=== PATIENT | male | born 1950 | race Caucasian/White ===

== ENCOUNTER 2017-06-04 16:22 | Emergency (ER) | payer OTHER, BC ==
[2017-06-04 16:35] VITALS: TEMP 99
--- NOTE | 2017-06-04 16:50 | CPEKG ---
Heart Rate: 54 RR Interval: 1111 P-R Interval: 184 QRSD Interval: 90 QT Interval: 448 QTC Interval: 425 P [place]: 52 QRS [place]: 23 T Wave [place]: 27 EKG Severity - ABNORMAL ECG - EKG Impression: SINUS RHYTHM EKG Impression: LEFT VENTRICULAR HYPERTROPHY Electronically Signed By: Mitchel Cosby 06-Jun-2017 12:31:40
[2017-06-04] MEDS ORDERED: ACETAMINOPHEN 325 MG TAB PO ONE (17:05)
[2017-06-04 17:08] LABS: PLATELET COUNT 150 10^3/uL (150-400)
--- NOTE | 2017-06-04 17:20 | EDPHY ---
H & P Stated Complaint: C/O HTN/CHEST TIGHTNESS/ZACARIAS ON AND OFF X 2WEEKS Time Seen by Provider: 06/04/17 16:32 HPI/ROS: Over the past 2 weeks this patient has noticed hypertension on a home blood pressure machine is been using to monitor his blood pressure. His primary care physician noted labile hypertension in the past. Over the same period of time the patient has noted intermittent headaches described as a "hot feeling" diffuse in location. He has this headache currently and describes the intensity as 6/10. This feels similar to previous headaches. He explains that for the past 2 weeks he typically gets this headache in the afternoon & evening and that it resolves when he wakes up in the morning. The headache does not prevent sleep. He has not tried any nabw-euw-vjiyjdr analgesics for his headache. He also describes a slight hot feeling in his chest. He will not call this pain. He just describes a feeling of "heat in his chest". This also is intermittent over the past 2 weeks, lasting an hour at a time. Finally, he reports occasional nausea including nausea this morning. He reports some chronic vision abnormalities that he attributes to his glaucoma and feels the lately he has slightly darker vision than usual, but has also had this in the past. His sister drove him by private vehicle here for further evaluation of his symptoms today. ROS: Constitutional: No significant fatigue. No fevers. HEENT: No complaints new line pulmonary: No dyspnea or cough. Cardiovascular: No heart palpitations. No lower extremity swelling. No worsening of the burning in his chest with exertion. GI: Normal bowel movements. No abdominal pain. Some nausea but no vomiting. : No flank pain. No dark urine or dysuria. No testicular symptoms. Integumentary: No diaphoresis. No pallor. No rash. Endocrine: No complaints Neuro: No confusion. No focal numbness tingling weakness. Complete review of symptoms otherwise negative Source: Patient Exam Limitations: No limitations - Personal History Current Tetanus Diphtheria and Acellular Pertussis (TDAP): Yes - Medical/Surgical History Other PMH: HERNIA/GLACOMA/ OA/HTN/. Osteopenia - Family History Significant Family History: Hypertension (His brother has a history of hypertension) - Social History Smoking Status: Never smoked Alcohol Use: Occasionally Drug Use: None - Physical Exam Exam: Vital signs notable for hypertension at 192/109. Other vitals normal. General Appearance: Alert, no distress. Eyes: Pupils equal and round no pallor or injection. ENT, Mouth: Mucous membranes moist. No cranial tenderness to palpation. Neck is supple Respiratory: There are no retractions, lungs are clear to auscultation. Cardiovascular: Regular rate and rhythm. No murmur gallop rub. Gastrointestinal: Abdomen is soft and nontender, no masses, bowel sounds normal. Neurological: GCS 15. No focal deficits. Cranial nerves 2-12 intact. Skin: Warm and dry, no rashes. Extremities are symmetrical, full range of motion. Psychiatric: He has a flat affect with the slow rate of speech, but otherwise mood is normal. DIFFERENTIAL DIAGNOSIS: After history and physical exam differential diagnosis was considered for essential hypertension with tension headache, doubt hypertensive encephalitis. Thyroid disease, myocardial ischemic disease, GERD, renal disease Constitutional: Initial Vital Signs Temperature (C) 37.2 C 06/04/17 16:30 Heart Rate 58 L 06/04/17 16:30 Respiratory Rate 18 06/04/17 16:30 Blood Pressure 192/109 H 06/04/17 16:30 O2 Sat (%) 99 06/04/17 16:30 O2 Delivery Mode Room Air Allergies/Adverse Reactions: No Known Allergies Allergy (Unverified 06/04/17 16:28) Home Medications: Medication Instructions Recorded Brimonidine 0.15% 06/04/17 Chlorthalidone 25 mg (*) 06/04/17 Dorzolamide 2% 06/04/17 Doxepin HCl 06/04/17 Latanoprost 0.005% 06/04/17 Lisinopril 10 mg PO DAILY #30 tablet 06/04/17 Myrbetriq 06/04/17 Ocuvite Lutein & Zeaxanthin Cp 06/04/17 Reclast 06/04/17 Medical Decision Making - Diagnostics EKG Interpretation: 12 lead EKG performed shortly after arrival indication chest pain Sinus rhythm at 54 Intervals: Normal throughout [place]: P of 52, QRS of 23, T of 27 ST segments: Normal throughout with exception of slight J-point elevation in lead V3. QRS voltage criteria for LVH is present. Overall assessment sinus rhythm with LVH ED Course/Re-evaluation: Review of labs reveals hyponatremia with a sodium of 124 CBC is normal Troponin is normal Clonidine p.o. With resolution of the patient's hypertension Tylenol p.o. With mild improvement in his headache. He remained stable while here. His feeling of"chest burning also resolved without further intervention. 1 L normal saline for hyponatremia Discussion: Patient with a history of osteopenia was being treated with the thiazide diuretic to try to slow loss of calcium. Has also had labile hypertension and this may have also been administered in part to treat his hypertension of the patient reports that he has only had labile hypertension present at times on previous visits to his physician. I think that his euvolemic hyponatremia is likely attributable to his thiazide diuretic. Recommend that he stop the thiazide diuretic and start lisinopril. His EKG is normal exception of LVH suggesting that he has longstanding essential hypertension. He also has a 1st order family member with chronic hypertension. I do not think his atypical chest pain is cardiac ischemic in etiology. Counseled regarding the importance of blood pressure control. After workup tonight, do not find evidence of acute end-organ injury from his current hypertension. He may have mild GERD. His headache may be attributable to his hyponatremia I counseled regarding this. No clinical evidence that suggests [employer] bleed, [employer] infection or other"red flag findings." I counseled patient regarding his findings, the treatment plan and answered all of he in his sister's questions prior to discharge home. He was interested in seeing an internal medicine physician in follow-up so provided number for [facility]. The patient understands need to return emergency department should he have any significant worsening of symptoms despite treatment plan. - Data Points Laboratory Results: Laboratory Results 06/04/17 16:55 06/04/17 16:55 06/04/17 06/04/17 06/04/17 17:28 17:20 16:55 WBC RBC Hgb POC Hgb 15.3 gm/dL gm/dL (13.7-17.5) Hct POC Hct 45 % % (40-51) MCV MCH MCHC RDW Plt Count MPV Neut % (Auto) Lymph % (Auto) [place] % (Auto) Eos % (Auto) Baso % (Auto) Nucleat RBC Rel Count Absolute Neuts (auto) Absolute Lymphs (auto) Absolute Monos (auto) Absolute Eos (auto) Absolute Basos (auto) Absolute Nucleated RBC Immature Gran % Immature Gran # POC Sodium 128 mEq/L L mEq/L (135-145) Sodium POC Potassium TNP Potassium POC Chloride 88 mEq/L L mEq/L (97-110) Chloride Carbon Dioxide Anion Gap POC BUN 16 mg/dL mg/dL (7-23) BUN Creatinine POC Creatinine 0.8 mg/dL mg/dL (0.7-1.3) Estimated GFR Glucose POC Glucose 96 mg/dL mg/dL (70-100) Calcium Troponin I TSH 2.160 uIU/mL uIU/mL (0.465-4.680) Urine Color YELLOW Urine Appearance CLEAR Urine pH 7.5 (5.0-7.5) Ur Specific [place] <= 1.005 (1.002-1.030) Urine Protein NEGATIVE (NEGATIVE) Urine Ketones NEGATIVE (NEGATIVE) Urine Blood TRACE H (NEGATIVE) Urine Nitrate NEGATIVE (NEGATIVE) Urine Bilirubin NEGATIVE (NEGATIVE) Urine Urobilinogen 0.2 EU EU (0.2-1.0) Ur Leukocyte Esterase NEGATIVE (NEGATIVE) Urine RBC 0-1 /hpf /hpf (0-3) Urine WBC NONE SEEN /hpf /hpf (0-3) Ur Epithelial Cells TRACE /lpf /lpf (NONE-1+) Urine Glucose NEGATIVE (NEGATIVE) 06/04/17 06/04/17 16:55 16:55 WBC 4.97 10^3/uL 10^3/uL (3.80-9.50) RBC 4.76 10^6/uL 10^6/uL (4.40-6.38) Hgb 14.9 g/dL g/dL (13.7-17.5) POC Hgb Hct 41.7 % % (40.0-51.0) POC Hct MCV 87.6 fL fL (81.5-99.8) MCH 31.3 pg pg (27.9-34.1) MCHC 35.7 g/dL g/dL (32.4-36.7) RDW 13.7 % % (11.5-15.2) Plt Count 150 10^3/uL 10^3/uL (150-400) MPV 10.1 fL fL (8.7-11.7) Neut % (Auto) 61.4 % % (39.3-74.2) Lymph % (Auto) 22.7 % % (15.0-45.0) [place] % (Auto) 12.1 % % (4.5-13.0) Eos % (Auto) 2.4 % % (0.6-7.6) Baso % (Auto) 1.2 % % (0.3-1.7) Nucleat RBC Rel Count 0.0 % % (0.0-0.2) Absolute Neuts (auto) 3.05 10^3/uL 10^3/uL (1.70-6.50) Absolute Lymphs (auto) 1.13 10^3/uL 10^3/uL (1.00-3.00) Absolute Monos (auto) 0.60 10^3/uL 10^3/uL (0.30-0.80) Absolute Eos (auto) 0.12 10^3/uL 10^3/uL (0.03-0.40) Absolute Basos (auto) 0.06 10^3/uL 10^3/uL (0.02-0.10) Absolute Nucleated RBC 0.00 10^3/uL 10^3/uL (0-0.01) Immature Gran % 0.2 % % (0.0-1.1) Immature Gran # 0.01 10^3/uL 10^3/uL (0.00-0.10) POC Sodium Sodium 124 mEq/L L mEq/L (135-145) POC Potassium Potassium 3.6 mEq/L mEq/L (3.5-5.2) POC Chloride Chloride 85 mEq/L L mEq/L (97-110) Carbon Dioxide 29 mEq/l mEq/l (22-31) Anion Gap 10 mEq/L mEq/L (8-16) POC BUN BUN 15 mg/dL mg/dL (7-23) Creatinine 0.7 mg/dL mg/dL (0.7-1.3) POC Creatinine Estimated GFR > 60 Glucose 80 mg/dL mg/dL (70-100) POC Glucose Calcium 9.2 mg/dL mg/dL (8.5-10.4) Troponin I < 0.012 ng/mL ng/mL (0.000-0.034) TSH Urine Color Urine Appearance Urine pH Ur Specific [place] Urine Protein Urine Ketones Urine Blood Urine Nitrate Urine Bilirubin Urine Urobilinogen Ur Leukocyte Esterase Urine RBC Urine WBC Ur Epithelial Cells Urine Glucose Medications Given: Discontinued Medications Acetaminophen (Tylenol) 975 mg PO EDNOW ONE Stop: 06/04/17 17:06 Last Admin: 06/04/17 17:19 Dose: 975 mg Clonidine (Catapres) 0.2 mg PO EDNOW ONE Stop: 06/04/17 17:05 Last Admin: 06/04/17 17:19 Dose: 0.2 mg Sodium Chloride (Ns) 1,000 mls @ 0 mls/hr IV ONCE ONE; Wide Open PRN Reason: Protocol Stop: 06/04/17 18:51 Last Admin: 06/04/17 19:06 Dose: 1,000 mls Point of Care Test Results: 06/04/17 17:28 POC Sodium 128 L POC Potassium TNP POC Chloride 88 L POC BUN 16 POC Creatinine 0.8 POC Glucose 96 Departure - Departure Disposition: Home, Routine, Self-Care Clinical Impression: Hypertensive urgency, Tension headache, Chest pain, atypical, Hyponatremia Condition: Good Instructions: Chest Pain (ED), Low-Sodium Diet (ED), Hypertension (ED) Additional Instructions: Diagnoses: 1. Hypertension 2. Tension headache 3. Atypical chest pain 4. Hyponatremia You're sodium is low tonight and may contribute to her headache. A low sodium is likely attributable to the chlorthalidone medication. Plan: Stop your chlortalidone medication. Stop supplemental potassium Increase sodium intake this week. Start lisinopril Tylenol for headaches if needed Call your primary care physician to arrange for a follow-up appointment for recheck of your blood pressure sometime within the week. He should also have ear sodium recheck to that time. It is likely that she to need a higher dose of lisinopril or addition of a 2nd medication ultimately to control her blood pressure. Return emergency department if you developed severe headache, confusion or other concerns. Referrals: Andre Arriola DO [Primary Care Provider] - As per Instructions Miryam Cortes MD [Medical Doctor] - As per Instructions Prescriptions: Lisinopril 10 mg PO DAILY #30 tablet
[2017-06-04] MEDS ORDERED: NS 1,000 ML IV ONE (18:50)
[2017-06-04 18:55] VITALS: O2SAT 96
[2017-06-04 20:37] VITALS: BP 123/63; PULSE 56; RESP 14
== END 2017-06-04 20:07 | disposition home or self-care (01) ==
LOC: CED 16:22
DX: G44.209 Tension-type headache, unspecified, not intractable (principal); R07.89 Other chest pain; I16.0 Hypertensive urgency; I10 Essential (primary) hypertension; E87.1 Hypo-osmolality and hyponatremia; E86.9 Volume depletion, unspecified
CPT/HCPCS: 80048-PO; 81003-PO; 81015-PO; 82947-QW; 84443-PO; 84484-PO; 85025-PO

== ENCOUNTER → 2018-03-25 | Outpatient (CLI) | payer OTHER, BC | LOC: FIMAGING 10:17 | PROVIDERS: ATTEND Internal Medicine Endocrinology, Diabetes & Metabolism | DX: Z13.820 Encounter for screening for osteoporosis (principal); M81.0 Age-related osteoporosis without current pathological fracture ==

== ENCOUNTER → 2018-05-14 | Outpatient (CLI) | payer OTHER, BC | LOC: BHFA 13:00 | PROVIDERS: ATTEND Internal Medicine Cardiovascular Disease | DX: I34.1 Nonrheumatic mitral (valve) prolapse (principal) ==

== ENCOUNTER → 2018-05-15 | Outpatient (CLI) | payer OTHER, BC | LOC: CIMAGING 11:00 | PROVIDERS: ATTEND Internal Medicine | DX: M79.672 Pain in left foot (principal) | CPT/HCPCS: 73630-PO ==